=== PATIENT | female | born 1970 | race Caucasian/White ===

== ENCOUNTER 2024-09-16 07:08 | Emergency (ER) | payer MEDICAID ==
[~2024-09-16] VITALS: Ht 165.1 cm; Wt 86.0 kg
[2024-09-16 07:15] VITALS: O2SAT 100
[2024-09-16] MEDS: IBUPROFEN 800MG TABLET PO ONE (07:53)
[2024-09-16] MEDS: OXYCODONE HCL/ACETAMINOPHEN 5/325MG TABLET PO ONE (07:53)
[2024-09-16 09:16] VITALS: BP 143/71; PULSE 72; RESP 18; TEMP 36.3; O2SAT 99
== END 2024-09-16 10:15 | disposition home or self-care (01) ==
LOC: ER 07:08
DX: M79.18 Myalgia, other site (principal); E11.40 Type 2 diabetes mellitus with diabetic neuropathy, unspecified; M54.9 Dorsalgia, unspecified; M25.519 Pain in unspecified shoulder; E11.9 Type 2 diabetes mellitus without complications; Z98.890 Other specified postprocedural states
CPT/HCPCS: 72100; 99283